=== PATIENT | female | born 1960 | race Caucasian/White ===

== ENCOUNTER 2017-04-05 08:00 | Outpatient (CLI) | payer MEDICAID ==
[2017-04-05 12:34] LABS: BASOPHILS # (AUTO) 0.1 10^3/uL (0.0-0.1); BASOPHILS % (AUTO) 0.4 %; EOSINOPHILS # (AUTO) 0.4 10^3/uL (0.0-0.7); HGB - HEMOGLOBIN 13.4 g/dL (12.0-16.0); LYMPHOCYTES # (AUTO) 2.5 10^3/uL (1.5-3.5); LYMPHOCYTES % (AUTO) 21.2 %; MEAN CORPUSCULAR HEMOGLOBIN 30.7 pg (27.0-31.0); MEAN CORPUSCULAR HGB CONC 33.7 g/dL (32.0-36.0); MEAN CORPUSCULAR VOLUME 91.1 fL (81.0-99.0); MEAN PLATELET VOLUME 9.6 fL (7.9-10.8); MONOCYTES # (AUTO) 0.9 10^3/uL (0.0-1.0); MONOCYTES % (AUTO) 7.4 %; PLT - PLATELET COUNT 259 10^3/uL (130-450); RED BLOOD COUNT 4.36 10^6/uL (4.20-5.40); RED CELL DISTRIBUTION WIDTH 13.6 % (12.0-15.0); WHITE BLOOD COUNT 11.8 x10^3/uL (4.8-10.8)
[2017-04-05 12:39] LABS: LITHIUM 0.66 mmol/L
[2017-04-05 12:41] LABS: ALBUMIN 4.3 g/dL (3.2-5.5); ALBUMIN/GLOBULIN RATIO 1.7 (1.0-2.2); ALKALINE PHOSPHATASE 72 IU/L (42-121); ALT ALANINE AMINOTRANSFERASE 17 IU/L (10-60); AST ASPARTATE AMINOTRANSFERASE 18 IU/L (10-42); BILIRUBIN,TOTAL 0.4 mg/dL (0.2-1.0); BUN - BLOOD UREA NITROGEN 13 mg/dL (6-20); CALCIUM 9.3 mg/dL (8.5-10.3); CARBON DIOXIDE - CO2 25 mmol/L (21-32); CHLORIDE 107 mmol/L (101-111); CHOL/HDL RATIO 3.1 (<4.4); CHOLESTEROL 134 mg/dL; CREATININE 0.7 mg/dL (0.4-1.0); GFR - MDRD 86 (>89); GLUCOSE 101 mg/dL (70-100); HDL CHOLESTEROL 43 mg/dL; LDL CHOLESTEROL,CALCULATED 71 mg/dL; LDL/HDL RATIO 1.7 (<4.4); SODIUM 138 mmol/L (135-145); TOTAL PROTEIN 6.9 g/dL (6.7-8.2); VLDL CHOLESTEROL 20 mg/dL
== END 2017-04-05 08:01 | disposition home or self-care (01) ==
LOC: LAB.N 08:00
PROVIDERS: ATTEND Physician Assistant Medical
DX: Z00.00 Encounter for general adult medical examination without abnormal findings (principal); Z79.899 Other long term (current) drug therapy; F31.60 Bipolar disorder, current episode mixed, unspecified; E78.5 Hyperlipidemia, unspecified; Z85.51 Personal history of malignant neoplasm of bladder
CPT/HCPCS: 36415; 80053; 80061; 80178; 83721; 84443; 85025

== ENCOUNTER 2017-05-10 10:44 | Outpatient (CLI) | payer MEDICAID ==
--- NOTE | 2017-05-22 09:51 | Mammography Report ---
BILATERAL SCREENING MAMMOGRAM: 05/10/2017 COMPARISON: There is no comparison. INDICATION: Screening exam. TECHNIQUE: Bilateral CC and MLO breast views. FINDINGS: The breast parenchyma is extremely dense which may limit the sensitivity of mammography. No dominant mass, architectural distortion, or concerning cluster of microcalcifications are seen. IMPRESSION: 1. BI-RADS CATEGORY 1 - NEGATIVE. 2. RECOMMEND ANNUAL SCREENING MAMMOGRAM. STANDARD QUALIFYING STATEMENTS: 1. This examination was reviewed with the aid of Computer-Aided Detection (CAD) . 2. A negative or benign imaging report should not delay biopsy if clinically suspicious findings are present. Consider surgical consultation if warranted. More than 5 % of cancers are not identified by imaging. 3. Dense breasts may obscure an underlying neoplasm. TD: 05/22/2017 09:51 KASANDRA
== END 2017-05-10 10:45 | disposition home or self-care (01) ==
LOC: DI.N 10:44
PROVIDERS: ATTEND Physician Assistant Medical
DX: Z00.00 Encounter for general adult medical examination without abnormal findings (principal)
CPT/HCPCS: 77067

== ENCOUNTER 2017-08-19 11:45 | Outpatient (CLI) | payer MEDICAID ==
[2017-08-19] MEDS ORDERED: IOPAMIDOL-300 100 ML VIAL ONE (12:09)
[2017-08-19] MEDS ORDERED: IOPAMIDOL-300 100 ML VIAL IVP ONE (12:30)
--- NOTE | 2017-08-19 14:06 | CT Report ---
CT IVP: 08/19/2017 CLINICAL INDICATION: Hematuria. History of transitional cell carcinoma of the bladder. TECHNIQUE: Axial CT images of the abdomen and pelvis were obtained prior to and following 100 mL Isovue 300 intravenously, using split bolus technique. COMPARISON: No previous CT is available for comparison. FINDINGS: Limited evaluation of the lung bases demonstrates minimal emphysematous changes. ABDOMEN: On the unenhanced images, there is no evidence of nephrolithiasis or hydronephrosis. The kidneys demonstrate symmetric uptake and excretion of contrast. Small cortical cysts are present. No solid renal lesion or collecting system lesion is identified. A left adrenal adenoma is incidentally noted. The liver, spleen, pancreas and right adrenal gland appear unremarkable. The gallbladder is not dilated. No bowel dilatation, free gas, or free fluid is present. No abdominal adenopathy is seen. PELVIS: The distal ureters and urinary bladder appear unremarkable. No pelvic adenopathy or free fluid is present. The pelvic organs appear unremarkable. Osseous structures demonstrate mild degenerative changes. IMPRESSION: NO EVIDENCE OF NEPHROLITHIASIS OR UPPER TRACT LESION. NO EVIDENT ETIOLOGY FOR PATIENT'S HEMATURIA. CT DOSE REDUCTION STATEMENT In accordance with CT protocol optimization, one or more of the following dose reduction techniques were utilized for this exam: automated exposure control, adjustment of mA and/or KV based on patient size, or use of iterative reconstructive technique. TD: 08/19/2017 13:43
== END 2017-08-19 11:46 | disposition home or self-care (01) ==
LOC: DI 11:45
PROVIDERS: ATTEND Urology
DX: R31.21 Asymptomatic microscopic hematuria (principal); D49.4 Neoplasm of unspecified behavior of bladder; Z85.51 Personal history of malignant neoplasm of bladder
CPT/HCPCS: 74178; Q9967

== ENCOUNTER 2017-08-30 14:12 | Outpatient (CLI) | payer MEDICAID ==
[2017-08-30 19:16] LABS: BILIRUBIN,URINE NEGATIVE (NEGATIVE); GLUCOSE, URINE (UA) NEGATIVE (NEGATIVE); KETONES,URINE (UA) NEGATIVE (NEGATIVE); LEUKOCYTE ESTERASE, URINE NEGATIVE (NEGATIVE); NITRITE,URINE NEGATIVE (NEGATIVE); OCCULT BLOOD,URINE SMALL (NEGATIVE); PROTEIN,URINE NEGATIVE (NEGATIVE); UROBILINOGEN,URINE 0.2 (NORMAL) E.U./dL (NORMAL)
[2017-08-30 19:39] LABS: CLARITY,URINE HAZY (CLEAR)
[2017-08-30 19:40] LABS: BACTERIA,URINE Rare /HPF (None Seen); RBC,URINE 0-5 /HPF (0-5); SQUAMOUS EPITHELIAL CELL,UR MANY Squamous (<= Few)
== END 2017-08-30 14:13 | disposition home or self-care (01) ==
LOC: LAB.N 14:12
PROVIDERS: ATTEND Urology
DX: D49.4 Neoplasm of unspecified behavior of bladder (principal); R31.21 Asymptomatic microscopic hematuria; Z85.51 Personal history of malignant neoplasm of bladder
CPT/HCPCS: 81001; 87086

== ENCOUNTER 2017-10-24 08:15 | Outpatient (CLI) | payer MEDICAID ==
[2017-10-24 12:13] LABS: BASOPHILS # (AUTO) 0.1 10^3/uL (0.0-0.1); BASOPHILS % (AUTO) 0.7 %; EOSINOPHILS # (AUTO) 0.4 10^3/uL (0.0-0.7); EOSINOPHILS % (AUTO) 4.8 %; HGB - HEMOGLOBIN 14.6 g/dL (12.0-16.0); LYMPHOCYTES # (AUTO) 2.5 10^3/uL (1.5-3.5); LYMPHOCYTES % (AUTO) 28.2 %; MEAN CORPUSCULAR HEMOGLOBIN 31.4 pg (27.0-31.0); MEAN CORPUSCULAR HGB CONC 33.4 g/dL (32.0-36.0); MEAN CORPUSCULAR VOLUME 94.2 fL (81.0-99.0); MEAN PLATELET VOLUME 9.6 fL (7.9-10.8); MONOCYTES # (AUTO) 0.7 10^3/uL (0.0-1.0); MONOCYTES % (AUTO) 7.3 %; NEUTROPHILS # (AUTO) 5.3 10^3/uL (1.5-6.6); PLT - PLATELET COUNT 280 10^3/uL (130-450); RED BLOOD COUNT 4.63 10^6/uL (4.20-5.40); RED CELL DISTRIBUTION WIDTH 14.2 % (12.0-15.0)
[2017-10-24 19:16] LABS: ALBUMIN 4.3 g/dL (3.2-5.5); ALBUMIN/GLOBULIN RATIO 1.4 (1.0-2.2); ALKALINE PHOSPHATASE 67 IU/L (42-121); ALT ALANINE AMINOTRANSFERASE 15 IU/L (10-60); AST ASPARTATE AMINOTRANSFERASE 17 IU/L (10-42); BILIRUBIN,TOTAL 0.5 mg/dL (0.2-1.0); BUN - BLOOD UREA NITROGEN 9 mg/dL (6-20); CALCIUM 9.6 mg/dL (8.5-10.3); CARBON DIOXIDE - CO2 28 mmol/L (21-32); CHLORIDE 107 mmol/L (101-111); CHOL/HDL RATIO 3.6 (<4.4); CHOLESTEROL 169 mg/dL; CREATININE 0.8 mg/dL (0.4-1.0); GFR - MDRD 74 (>89); GLUCOSE 102 mg/dL (70-100); HDL CHOLESTEROL 47 mg/dL; LDL CHOLESTEROL,CALCULATED 100 mg/dL; LDL/HDL RATIO 2.1 (<4.4); SODIUM 138 mmol/L (135-145); TOTAL PROTEIN 7.4 g/dL (6.7-8.2); VLDL CHOLESTEROL 22 mg/dL
== END 2017-10-24 08:16 | disposition home or self-care (01) ==
LOC: LAB.N 08:15
PROVIDERS: ATTEND Nurse Practitioner Psychiatric/Mental Health
DX: F31.81 Bipolar II disorder (principal)
CPT/HCPCS: 36415; 80053; 80061; 80178; 81599; 82306; 83721; 84443; 85025

== ENCOUNTER 2017-12-24 09:14 | Outpatient (CLI) | payer MEDICAID ==
[2017-12-24 13:13] LABS: BASOPHILS # (AUTO) 0.1 10^3/uL (0.0-0.1); BASOPHILS % (AUTO) 0.9 %; EOSINOPHILS # (AUTO) 0.6 10^3/uL (0.0-0.7); HGB - HEMOGLOBIN 14.4 g/dL (12.0-16.0); LYMPHOCYTES # (AUTO) 2.6 10^3/uL (1.5-3.5); LYMPHOCYTES % (AUTO) 27.2 %; MEAN CORPUSCULAR HEMOGLOBIN 31.4 pg (27.0-31.0); MEAN CORPUSCULAR HGB CONC 33.5 g/dL (32.0-36.0); MEAN CORPUSCULAR VOLUME 93.8 fL (81.0-99.0); MEAN PLATELET VOLUME 9.9 fL (7.9-10.8); MONOCYTES # (AUTO) 0.7 10^3/uL (0.0-1.0); MONOCYTES % (AUTO) 7.4 %; NEUTROPHILS # (AUTO) 5.6 10^3/uL (1.5-6.6); NEUTROPHILS % (AUTO) 58.5 %; PLT - PLATELET COUNT 283 10^3/uL (130-450); RED CELL DISTRIBUTION WIDTH 13.7 % (12.0-15.0); WHITE BLOOD COUNT 9.5 x10^3/uL (4.8-10.8)
[2017-12-24 13:46] LABS: LITHIUM 1.09 mmol/L
== END 2017-12-24 09:15 | disposition home or self-care (01) ==
LOC: LAB.N 09:14
PROVIDERS: ATTEND Nurse Practitioner Psychiatric/Mental Health
DX: D72.820 Lymphocytosis (symptomatic) (principal); F31.81 Bipolar II disorder
CPT/HCPCS: 36415; 80178; 85025

== ENCOUNTER 2018-02-06 09:45 | Outpatient (CLI) | payer MEDICAID ==
[2018-02-06 13:42] LABS: LITHIUM 0.65 mmol/L
== END 2018-02-06 23:59 ==
LOC: LAB.N 09:45
PROVIDERS: ATTEND Nurse Practitioner Psychiatric/Mental Health
DX: F31.81 Bipolar II disorder (principal)
CPT/HCPCS: 36415; 80178

== ENCOUNTER 2018-04-02 12:58 | Outpatient (CLI) | payer MEDICAID ==
--- NOTE | 2018-04-02 15:38 | Ultrasound Report ---
Reason: ENLARGED UTERUS Procedure Date: 04/02/2018 Accession Number: [id number] / [id number] Procedure: US - Pelvic w/Transvaginal CPT Code: FULL RESULT: EXAM: PELVIC ULTRASOUND EXAM DATE: 04/02/2018 02:09 PM. CLINICAL HISTORY: Enlarged uterus. COMPARISON: None. TECHNIQUE: Realtime transabdominal pelvic scan performed to identify the uterus and adnexa and as an overview of other pelvic structures, followed by transvaginal scan to provide greater detail of the uterus and adnexa, with static image documentation. FINDINGS: Uterus: 5.2 x 2.9 x 3.6 cm, volume 29 cc. Retroverted position. Normal overall size and echotexture. Masses: None. Endometrium: 4.4 mm. Normal. Cervix: Unremarkable. Both ovaries could not be seen in transabdominal or transvaginal fashion. Free Fluid: None. Other: None. IMPRESSION: Normal uterine examination with nonvisualization of the ovaries. RADIA
== END 2018-04-02 12:59 | disposition home or self-care (01) ==
LOC: DI 12:58
PROVIDERS: ATTEND Nurse Practitioner Obstetrics & Gynecology
DX: N85.2 Hypertrophy of uterus (principal)
CPT/HCPCS: 76830; 76856

== ENCOUNTER 2018-06-19 11:26 | Outpatient (CLI) | payer MEDICAID ==
--- NOTE | 2018-06-20 09:31 | Mammography Report ---
Reason: ANNUAL SCREENING Procedure Date: 06/19/2018 Accession Number: [id number] / [id number] Procedure: NOAM - Screening Mammo Dig Bilat CPT Code: FULL RESULT: EXAM: Screening Mammo Dig Bilat DATE: 06/19/2018 12:10 PM CLINICAL HISTORY: Screening encounter. History of excisional right breast biopsy with benign results. Family history of breast cancer in a sister at the age of 65 and a maternal aunt at the age of 70. TECHNIQUE: (B) - Bilateral CC, laterally exaggerated CC, MLO views were obtained. COMPARISON: 05/10/2017. PARENCHYMAL PATTERN: (D) - The breast(s) demonstrate(s) heterogeneously dense fibroglandular parenchyma. FINDINGS: Coarse typically benign calcifications are redemonstrated. There are no suspicious masses, calcifications, or areas of distortion. IMPRESSION: Benign findings. BI-RADS category 2. RECOMMENDATION: (ANNUAL) - Recommend routine annual screening mammography. BI-RADS CATEGORY: (2) - Benign Findings. STANDARD QUALIFYING STATEMENTS: 1. This examination was not reviewed with the aid of Computer-Aided Detection (CAD). 2. A negative or benign imaging report should not preclude biopsy if clinically suspicious findings are present. 3. Dense breasts may obscure an underlying neoplasm. 4. This examination was reviewed without the aid of 3D breast imaging (tomosynthesis).
== END 2018-06-19 11:27 | disposition home or self-care (01) ==
LOC: DI 11:26
PROVIDERS: ATTEND Nurse Practitioner Obstetrics & Gynecology
DX: Z12.31 Encounter for screening mammogram for malignant neoplasm of breast (principal); Z80.3 Family history of malignant neoplasm of breast
CPT/HCPCS: 77067

== ENCOUNTER 2018-07-23 08:16 | Outpatient (CLI) | payer MEDICAID ==
[2018-07-23 12:36] LABS: BASOPHILS # (AUTO) 0.1 10^3/uL (0.0-0.1); BASOPHILS % (AUTO) 0.5 %; EOSINOPHILS # (AUTO) 0.5 10^3/uL (0.0-0.7); EOSINOPHILS % (AUTO) 4.2 %; HGB - HEMOGLOBIN 14.4 g/dL (12.0-16.0); LYMPHOCYTES # (AUTO) 2.4 10^3/uL (1.5-3.5); LYMPHOCYTES % (AUTO) 21.8 %; MEAN CORPUSCULAR HEMOGLOBIN 30.6 pg (27.0-31.0); MEAN CORPUSCULAR HGB CONC 32.5 g/dL (32.0-36.0); MEAN PLATELET VOLUME 9.8 fL (7.9-10.8); MONOCYTES # (AUTO) 0.8 10^3/uL (0.0-1.0); MONOCYTES % (AUTO) 7.2 %; NEUTROPHILS # (AUTO) 7.2 10^3/uL (1.5-6.6); NEUTROPHILS % (AUTO) 66.3 %; PLT - PLATELET COUNT 276 10^3/uL (130-450); RED BLOOD COUNT 4.71 10^6/uL (4.20-5.40); RED CELL DISTRIBUTION WIDTH 13.6 % (12.0-15.0); WHITE BLOOD COUNT 10.9 x10^3/uL (4.8-10.8)
[2018-07-23 13:02] LABS: CALCIUM 9.7 mg/dL (8.5-10.3); CREATININE 0.6 mg/dL (0.4-1.0)
== END 2018-07-23 23:59 | disposition home or self-care (01) ==
LOC: LAB.N 08:16
PROVIDERS: ATTEND Physician Assistant Medical
DX: L65.9 Nonscarring hair loss, unspecified (principal)
CPT/HCPCS: 36415; 80048; 84443; 85025

== ENCOUNTER 2018-09-19 08:00 | Outpatient (CLI) | payer MEDICAID ==
[2018-09-19 19:08] LABS: LITHIUM 1.01 mmol/L
== END 2018-09-19 23:59 | disposition home or self-care (01) ==
LOC: LAB.WCP 08:00
PROVIDERS: ATTEND Nurse Practitioner Psychiatric/Mental Health
DX: Z51.81 Encounter for therapeutic drug level monitoring (principal); F31.81 Bipolar II disorder
CPT/HCPCS: 36415; 80178

== ENCOUNTER 2018-10-23 10:23 | Outpatient (CLI) | payer MEDICAID ==
[2018-10-23 13:35] LABS: CHOL/HDL RATIO 4.3 (<4.4); CHOLESTEROL 204 mg/dL; HDL CHOLESTEROL 48 mg/dL; LDL CHOLESTEROL,CALCULATED 133 mg/dL; LDL/HDL RATIO 2.8 (<4.4); VLDL CHOLESTEROL 23 mg/dL
== END 2018-10-23 23:59 | disposition home or self-care (01) ==
LOC: LAB.N 10:23
PROVIDERS: ATTEND Family Medicine
DX: E78.5 Hyperlipidemia, unspecified (principal)
CPT/HCPCS: 36415; 80061; 83721

== ENCOUNTER 2019-05-11 06:18 | Day surgery (SDC) | payer MEDICAID ==
[2019-05-11] MEDS ORDERED: LACTATED RINGERS 1,000 ML IV ONE ×2 (06:28→09:50)
[2019-05-11] MEDS ORDERED: CIPROFLOXACIN 400 MG/200 ML 200 ML IV ONE (06:31)
--- NOTE | 2019-05-11 07:12 | ANESTHESIA ---
Pre-Anesthesia VS, & Labs - Diagnosis Hx of bladder CA - Procedure TURBT Vital Signs: Temp Pulse Resp BP Pulse Ox 36.6 C 84 16 100/53 L 100 05/11/19 06:36 05/11/19 06:36 05/11/19 06:36 05/11/19 06:36 05/11/19 06:36 Height 5 ft 3 in Weight (kg) 49.7 kg - NPO >8 hours - Is Patient ?: No - Lab Results Lab results reviewed: Yes Home Medications and Allergies Home Medications: Ambulatory Orders Patrick ER [Lithobid] 300 mg PO BID 05/05/19 Multivitamin [Multiple Vitamins] 1 each PO DAILY 05/05/19 clonazePAM [KlonoPIN] 0.25 mg PO DAILY PRN 05/05/19 Patrick ER [Lithobid] 300 mg PO BID 05/05/19 Multivitamin [Multiple Vitamins] 1 each PO DAILY 05/05/19 clonazePAM [KlonoPIN] 0.25 mg PO DAILY PRN 05/05/19 Allergies/Adverse Reactions: Allergies Allergy/AdvReac Type Severity Reaction Status Date / Time Sulfa (Sulfonamide AdvReac Rash Verified 05/05/19 16:38 Antibiotics) Anes History & Medical History - Anesthetic History Anesthesia Complications: reports: No previous complications Family history of Anesthesia Complications: Denies Family history of Malignant Hyperthermia: Denies - Medical History Cardiovascular: reports: None Pulmonary: reports: None Gastrointestinal: reports: None Urinary: reports: Other Musculoskeletal: reports: None Endocrine/Autoimmune: reports: None Skin: reports: None - Surgical History General: Colonoscopy, Other Eyes Ears Nose Throat (EENT): Tonsil/Adenoidectomy Urologic: Bladder surgery Gynecologic: Tubal ligation Orthopedic: Other Exam General: Alert, Oriented x3, Cooperative Mouth Openin Fingerbreadth Neck Mobility: Normal Mallampati classification: II Thyromental Distance: 4-6 cm Respiratory: Lungs clear, Normal breath sounds Cardiovascular: Regular rate Neurological: Normal speech Mental/Cognitive Status: Alert/Oriented X3, Normal for patient Cognitive Status: Within normal limits Plan Anesthesia Type: General Consent for Procedure(s) Verified and Reviewed: Yes Code Status: Attempt Resuscitation ASA classification: 2-Mild systemic disease Is this case an emergency?: No
[2019-05-11] MEDS ORDERED: PROPOFOL 200 MG/20 ML VIAL IVP ONE (07:43)
[2019-05-11] MEDS ORDERED: fentaNYL 100 MCG/2 ML VIAL IVP ONE (07:43)
[2019-05-11] MEDS ORDERED: ONDANSETRON 4 MG/2 ML VIAL IVP ONE (07:43)
[2019-05-11] MEDS ORDERED: MIDAZOLAM 2 MG/2 ML VIAL IVP ONE (07:43)
[2019-05-11] MEDS ORDERED: DEXAMETHASONE 4 MG/ML VIAL IVP ONE (07:43)
[2019-05-11] MEDS ORDERED: LIDOCAINE-MPF 2% 5 ML VIAL IM ONE (07:43)
[2019-05-11] MEDS ORDERED: ONDANSETRON 4 MG/2 ML VIAL IVP PRN (08:50)
[2019-05-11] MEDS ORDERED: HYDROmorphone 0.5 MG/0.5 ML SYRINGE IVP PRN (08:50)
[2019-05-11] MEDS ORDERED: PHENAZOPYRIDINE 100 MG TABLET PO STA (08:50)
[2019-05-11] MEDS ORDERED: HYDROcod/ACETAM 5/325 MG TABLET PO PRN (08:50)
[2019-05-11] MEDS ORDERED: ACETAMINOPHEN 1,000 MG/100 ML 100 ML IV ONE (09:06)
[2019-05-11 10:01] VITALS: BP 95/56
--- NOTE | 2019-05-12 08:46 | OPERATIVE REPORT ---
DATE OF SERVICE: 05/11/2019 Physician: Viki Youssef MD SURGEON: Viki Youssef MD ANESTHESIA: General. PROCEDURE PERFORMED: Transurethral resection and fulguration of bladder tumor. PREOPERATIVE DIAGNOSIS: Recurrent papillary bladder tumor. POSTOPERATIVE DIAGNOSIS: Recurrent papillary bladder tumor. INDICATIONS: Patient is a 58-year-old woman with longstanding history of recurrent low-grade papilla ry tumors and ongoing smoking, presenting again with a small low-grade recurrence electing a fulgurat ion resection. PROCEDURE IN DETAIL: After appropriate informed consent was obtained, patient was brought to the ope rating room. She received IV antibiotics prior to the procedure. SCDs were placed. Adequate genera l anesthesia was induced. She was carefully placed in the dorsal lithotomy position. All pressure p oints were carefully padded, cleaned, prepped and draped in the usual sterile fashion. Rigid scope w as introduced into her bladder, which was surveyed in systematic fashion with both the 30 and 70-degr ee lenses. There were changes consistent with prior resection seen as well as some low papillary bev nges in 4 separate areas of her bladder, one anterior towards the air bubble and off to the left. Th e others in line with the left ureteral orifice lateral and proximal. Cold cut biopsy was used for e ach of these areas with the area underlying fulgurated to good hemostasis. Pieces were handed off fo r permanent pathology. All of it appeared visually as low-grade changes. Hemostasis was excellent. The right ureteral orifice was preserved and uninvolved. We irrigated out the pieces and handed the m off for permanent path. At termination of the procedure, the hemostasis was excellent. The area t reated each of these lesions were approximately 1 cm in size. There was excellent hemostasis. Her b ladder was drained. She was awakened and taken in stable condition to the postanesthesia care unit. TD: 05/12/2019 08:33
== END 2019-05-11 06:19 | disposition home or self-care (01) ==
LOC: SDS 06:18
PROVIDERS: ATTEND Urology
PROC: 0TBB8ZX Excision of Bladder, Via Natural or Artificial Opening Endoscopic, Diagnostic (ICD-10-PCS; principal; 2019-05-11 07:30)
DX: C67.3 Malignant neoplasm of anterior wall of bladder (principal); C67.6 Malignant neoplasm of ureteric orifice; F31.9 Bipolar disorder, unspecified; F17.200 Nicotine dependence, unspecified, uncomplicated; Z85.51 Personal history of malignant neoplasm of bladder
CPT/HCPCS: 52234; J0131; J7120

== ENCOUNTER 2019-08-19 09:14 | Outpatient (CLI) | payer MEDICAID ==
[2019-08-19 09:42] LABS: BASOPHILS # (AUTO) 0.1 10^3/uL (0.0-0.1); BASOPHILS % (AUTO) 0.7 %; EOSINOPHILS # (AUTO) 0.5 10^3/uL (0.0-0.7); EOSINOPHILS % (AUTO) 5.2 %; HGB - HEMOGLOBIN 13.7 g/dL (12.0-16.0); LYMPHOCYTES # (AUTO) 2.7 10^3/uL (1.5-3.5); LYMPHOCYTES % (AUTO) 29.3 %; MEAN CORPUSCULAR HEMOGLOBIN 32.1 pg (27.0-31.0); MEAN CORPUSCULAR HGB CONC 32.8 g/dL (32.0-36.0); MEAN CORPUSCULAR VOLUME 97.9 fL (81.0-99.0); MEAN PLATELET VOLUME 10.3 fL (7.9-10.8); MONOCYTES # (AUTO) 0.8 10^3/uL (0.0-1.0); MONOCYTES % (AUTO) 8.5 %; NEUTROPHILS # (AUTO) 5.1 10^3/uL (1.5-6.6); NEUTROPHILS % (AUTO) 56.1 %; PLT - PLATELET COUNT 279 10^3/uL (130-450); RED BLOOD COUNT 4.27 10^6/uL (4.20-5.40); RED CELL DISTRIBUTION WIDTH 13.1 % (12.0-15.0); WHITE BLOOD COUNT 9.2 x10^3/uL (4.8-10.8)
[2019-08-19 09:54] LABS: CREATININE 0.7 mg/dL (0.4-1.0)
[2019-08-19 10:03] LABS: LITHIUM 0.73 mmol/L
== END 2019-08-19 09:15 | disposition home or self-care (01) ==
LOC: LAB 09:14
PROVIDERS: ATTEND Psychiatry & Neurology Psychiatry
DX: F31.81 Bipolar II disorder (principal)
CPT/HCPCS: 36415; 80178; 82378; 82565; 84443; 84520; 85025

== ENCOUNTER 2019-11-12 11:21 | Outpatient (CLI) | payer MEDICAID ==
--- NOTE | 2019-11-13 09:18 | Mammography Report ---
BILATERAL DIGITAL SCREENING MAMMOGRAM 3D/2D: 11/12/2019 CLINICAL: Routine screening. Comparison is made to exams dated: 06/19/2018 mammogram and 05/10/2017 mammogram - [facility]. The tissue of both breasts is heterogeneously dense. This may lower the sensitivity of idalmis mography. No significant masses, calcifications, or other findings are seen in either breast. There has been no significant interval change. IMPRESSION: NEGATIVE There is no mammographic evidence of malignancy. A 1 year screening mammogram is recommended. This exam was interpreted at Station ID: [id number]. NOTE: For mammograms, a report in lay terms will be sent to the patient. Approximately 15% of breast malignancies will not be visualized mammographically. In the management of a palpable breast mass, a negative mammogram must not discourage biopsy of a clinically suspicious lesion. Electronically Signed By: Jordan Vega M.D. ar/penrad:11/12/2019 13:34:46 ACR BI-RADS Category 1: Negative 3341F PARENCHYMAL PATTERN: (D) - The breast(s) demonstrate(s) heterogeneously dense fibroglandular giselle yee. BI-RADS CATEGORY: (1) - 1 RECOMMENDATION: (ANNUAL) - Recommend routine annual screening mammography. [id number] 1 year screening LATERALITY: (B)
== END 2019-11-12 11:22 | disposition home or self-care (01) ==
LOC: DI.N 11:21
PROVIDERS: ATTEND Advanced Practice Midwife
DX: Z12.31 Encounter for screening mammogram for malignant neoplasm of breast (principal)
CPT/HCPCS: 77063; 77067